=== PATIENT | female | born 1950 | race Caucasian/White ===

== ENCOUNTER 2017-09-12 16:12 | Emergency (ER) | payer MEDICARE, OTHER ==
[~2017-09-12] VITALS: Ht 5367.7 cm; Wt 92.0 kg
[2017-09-12 16:41] LABS: BASOPHILS # (AUTO) 0.1 X10'3 (0-0.2); EOSINOPHILS # (AUTO) 0.3 X10'3 (0-0.9); EOSINOPHILS % (AUTO) 3.9 % (0-6); HEMATOCRIT 40.6 % (35.0-45.0); HEMOGLOBIN 13.8 g/dl (12.0-16.0); LYMPHOCYTES % (AUTO) 41.1 % (21-51); MEAN CORPUSCULAR HEMOGLOBIN 28.3 PG (27.0-31.0); MEAN CORPUSCULAR VOLUME 83.2 FL (78-98); MEAN PLATELET VOLUME 7.9 FL (7.4-10.4); MONOCYTES # (AUTO) 0.6 X10'3 (0-0.9); MONOCYTES % (AUTO) 7.9 % (2-12); NEUTROPHILS # (AUTO) 3.4 X10'3 (1.8-7.7); NEUTROPHILS % (AUTO) 46.1 % (42-75); PLATELET COUNT 278 X10'3 (140-440); RED BLOOD COUNT 4.88 X10'6 (4.20-5.60); RED CELL DISTRIBUTION WIDTH 13.4 % (11.5-14.5); WHITE BLOOD COUNT 7.4 X10'3 (4.5-11.0)
[2017-09-12 16:53] LABS: INR 0.9 INR; PARTIAL THROMBOPLASTIN TIME 29 SECONDS (22-32); PROTHROMBIN TIME 9.3 SECONDS (9.0-12.0)
[2017-09-12 16:56] LABS: ALANINE AMINOTRANSFERASE 17 U/L (12-78); ALBUMIN 3.3 G/DL (3.4-5.0); ALBUMIN/GLOBULIN RATIO 0.7 (1.1-1.5); ALKALINE PHOSPHATASE 97 IU/L (46-116); ANION GAP 11 (8-16); ASPARTATE AMINO TRANSFERASE 17 U/L (10-37); BILIRUBIN,TOTAL 0.3 MG/DL (0.1-1.0); BLOOD UREA NITROGEN 29 MG/DL (7-18); BUN/CREATININE RATIO 21.2 (6.6-38.0); CALCIUM 9.3 MG/DL (8.5-10.1); CHLORIDE 105 MMOL/L (99-107); CREATININE 1.37 MG/DL (0.40-0.90); GLUCOSE 120 MG/DL (70-104); POTASSIUM 3.4 MMOL/L (3.5-5.1); SODIUM 142 MMOL/L (135-145); TOTAL CARBON DIOXIDE 25.9 MMOL/L (24-32); TOTAL PROTEIN 7.9 G/DL (6.4-8.2); eGFR 38 ML/MIN
[2017-09-12 19:34] VITALS: BP 108/47
== END 2017-09-12 19:37 | disposition home or self-care (01) ==
LOC: ER 16:13
DX: R00.2 Palpitations (principal); R42 Dizziness and giddiness; I10 Essential (primary) hypertension; G62.9 Polyneuropathy, unspecified; F17.200 Nicotine dependence, unspecified, uncomplicated; Z88.8 Allergy status to other drugs, medicaments and biological substances
CPT/HCPCS: 36415; 71045; 80053; 84484; 85025; 85610; 85730; 93005; 99285

== ENCOUNTER 2024-10-08 12:03 | Emergency (ER) | payer MEDICARE, OTHER ==
[~2024-10-08] VITALS: Ht 162.6 cm; Wt 78.2 kg
[2024-10-08 12:09] VITALS: TEMP 98
--- NOTE | 2024-10-08 12:26 | Physician Documentation ---
History of Present Illness Chief Complaint: See Chief Complaint Stated Complaint: DIFFICULTY SWALLOWING Time Seen by MD: 12:17 HPI 74-year-old female presents to the ED with a complaint of difficulty swallowing. She states that one week ago she attempted to take an ibuprofen for pain and 1 hour later she coughed up the pill partially digested. Additionally she says sometimes after attempting to have a meal she will cough it up. And she says at times she will cough up undigested particles and food. She is however able to to take softened foods like smoothies without difficulty. She also states that she has lost over 30 lb over the last few months Day of Onset: October 08, 2024 Medication Reconciliation Allergies: Coded Allergies: bupropion (Unverified Allergy, Unknown, LEFT SIDE OF FACE WENT NUMB, 10/08/24) naproxen (Unverified Allergy, Unknown, SWOLLEN FEET., 10/08/24) pseudoephedrine (Unverified Allergy, Unknown, MAKES HEART RACE, 10/08/24) Past Medical History Past Medical History: Peripheral Neuropathy, Hypertension, Anxiety Past Surgical History: no surgical history Other Past Family History: brother with AL at 51 Alcohol Use: None Drug Use: none Lives with: Family Lives In: Home Review of Systems All Other Systems at this time: Reviewed and Negative ROS As stated above in the HPI, otherwise all systems are reviewed and negative. Physical Exam Vital Signs: Temperature: 98.0, Source: Temporal, Heart Rate: 98, Respiratory Rate: 16, BP: 134/106, Pulse Oximetry: 98, Weight: 78.250 Oxygen Flow Rate: 0 Physical Exam General: Alert, no apparent distress. HEENT: PERRL, EOMI, no injection, moist mucous membranes. Neck: Full range of motion. Respiratory: Lungs clear, no respiratory distress. Neurologic: Oriented x4. Progress Results/Orders Results/Orders Orders - ELAN BRIAN TRAFFIC CONTROL OPERATOR Chest,Single View (10/08/24 12:23) Vital Signs 10/08/24 10/08/24 10/08/24 12:09 12:17 12:18 Temp 98.0 Pulse 95 98 Resp 18 16 B/P (MAP) 159/84 134/106 (115) Pulse Ox 98 98 O2 Flow Rate 0 Medical Decision Making Findings This pleasant 74-year-old female passed her swallow eval via nursing staff. However I was hoping to achieve a more functional swallow eval via a speech therapy however this resource was unavailable at the hospital at this time. Nor was there a radiologist on site who could do a barium swallow eval. I do not believe she has any in any acute danger. However I can not rule out esophageal stricture or Zenker's diverticulum or achalasia. She truly meets criteria for outpatient evaluation including a endoscopy and an ear nose throat evaluation.. I discussed with her to eaten drank soft foods including smoothies in order to get her nutrition. This is until she gets the appropriate evaluation. Differential Dx:Considerations: Include: AAA, -Complete, - Incomplete, -Inevitable, -Missed, -Threatened, Abruptio placentae, Angina/AL, Aortic dissection, Appendicitis, Bowel obstruction, Cholangitis, Cholelithasis, Constipation, Diverticular disease, Esophageal rupture, Esophagitis, Gastritis/PUD, Gastroenteritis, GI hemorrhage, Hernia, Hepatitis, Inflammatory BD, Ischemic bowel, Ovarian cyst/torsion, Pancreatitis, PID, Porphyria, Trauma, intraabdominal, Urinary obstruction, Urinary tract infection, Urolithiasis, Other Departure Disposition: 01 HOME / SELF CARE / HOMELESS Impression: Primary Impression: Dysphagia Discharge Instructions: Epps's Esophagus, Esophageal Atresia Repair, Esophageal Dilatation Additional Instructions: Recommending follow up with her primary care or urgent care to obtain a referral to go see a scourer for endoscopy or an ENT evaluation of your difficulty swallowing symptoms. Referrals: NO PRIMARY CARE PROVIDER (PCP) Signature Scribe Signature: r Attestation: The note accurately reflects work and decisions made by me.Elan Israel NP 10/08/24 13:41 ELAN BRIAN NP October 08, 2024 12:26
--- NOTE | 2024-10-08 12:44 | RADIOLOGY REPORT ---
CHEST RADIOGRAPH Indication: food bolus Technique: Single frontal view of the chest was obtained COMPARISON: None FINDINGS: Lines and Tubes: None Lungs: Clear Pleura: No effusion. No pneumothorax. Cardiomediastinal contours: Unremarkable Bones: Unremarkable IMPRESSION: No acute disease.
[2024-10-08 13:55] LABS: BASOPHILS # (AUTO) 0.1 X10'3 (0-0.2); BASOPHILS % (AUTO) 0.8 % (0-1); EOSINOPHILS # (AUTO) 0.2 X10'3 (0-0.9); EOSINOPHILS % (AUTO) 2.9 % (0-6); HEMATOCRIT 45.9 % (35.0-45.0); HEMOGLOBIN 15.1 g/dl (12.0-16.0); MEAN CORPUSCULAR HEMOGLOBIN 27.5 PG (27.0-31.0); MEAN CORPUSCULAR HGB CONC 32.8 g/dL (33.0-36.5); MEAN CORPUSCULAR VOLUME 83.8 FL (78-98); MEAN PLATELET VOLUME 8.5 FL (7.4-10.4); MONOCYTES # (AUTO) 0.5 X10'3 (0-0.9); MONOCYTES % (AUTO) 6.6 % (2-12); NEUTROPHILS # (AUTO) 5.2 X10'3 (1.8-7.7); NEUTROPHILS % (AUTO) 64.7 % (42-75); PLATELET COUNT 243 X10'3 (140-440); RED BLOOD COUNT 5.48 X10'6 (4.20-5.60); RED CELL DISTRIBUTION WIDTH 13.5 % (11.5-14.5); WHITE BLOOD COUNT 8.1 X10'3 (4.5-11.0)
[2024-10-08 14:25] LABS: ALANINE AMINOTRANSFERASE 13 U/L (12-78); ALBUMIN 3.1 G/DL (3.4-5.0); ALBUMIN/GLOBULIN RATIO 0.8 (1.1-1.5); ALKALINE PHOSPHATASE 102 IU/L (46-116); ANION GAP 7 (8-16); ASPARTATE AMINO TRANSFERASE 10 U/L (10-37); BILIRUBIN,TOTAL 0.5 MG/DL (0.1-1.0); BLOOD UREA NITROGEN 17 MG/DL (7-18); BUN/CREATININE RATIO 13.8 (10.0-20.0); CALCIUM 8.8 MG/DL (8.5-10.1); CHLORIDE 102 MMOL/L (99-107); CREATININE 1.23 MG/DL (0.40-0.90); GLUCOSE 108 MG/DL (70-104); LIPASE 32 U/L (16-77); POTASSIUM 3.9 MMOL/L (3.5-5.1); SODIUM 137 MMOL/L (135-145); TOTAL CARBON DIOXIDE 27.7 MMOL/L (24-32); TOTAL PROTEIN 6.9 G/DL (6.4-8.2); eCRCL 34 ML/MIN; eGFR 43 ML/MIN
[2024-10-08 15:50] LABS: BILIRUBIN,URINE SMALL (Neg); CLARITY,URINE CLEAR (Clear); COLOR,URINE YELLOW (Yellow); GLUCOSE, URINE NEGATIVE (Neg); KETONES,URINE NEGATIVE (Neg); LEUKOCYTE ESTERASE ,URINE TRACE (Neg); NITRITES, URINE POSITIVE (Neg); OCCULT BLOOD,URINE TRACE-INTACT (Neg); PH,URINE 5.5 (4.8-8.0); PROTEIN,URINE NEGATIVE (Neg)
[2024-10-08 16:13] LABS: UA COLLECTION TYPE VOIDED
[2024-10-08 16:14] LABS: WBC,URINE 50-100 /HPF (0-4)
[2024-10-08 16:15] LABS: BACTERIA,URINE 4+ /HPF (Neg); MUCUS STRANDS NONE SEEN /LPF (Neg); RBC,URINE 0-2 /HPF (0-2); RENAL CELLS, URINE FEW /HPF; SQUAMOUS EPITHELIAL CELL,UR MODERATE /LPF (FEW); TRANSITIONAL EPI CELLS,URINE FEW /HPF
[2024-10-08 16:16] VITALS: BP 148/74; PULSE 81; RESP 16; O2SAT 97
== END 2024-10-08 16:17 | disposition home or self-care (01) ==
LOC: ER 12:04
DX: R13.10 Dysphagia, unspecified (principal); I10 Essential (primary) hypertension; Z88.6 Allergy status to analgesic agent; Z88.8 Allergy status to other drugs, medicaments and biological substances
CPT/HCPCS: 36415; 71045; 80053; 81001; 83690; 85025; 87088; 87186; 99284